=== PATIENT | male | born 1980 | race Caucasian/White ===

== ENCOUNTER → 2016-10-09 | Outpatient (CLI) | payer MEDICAID ==
--- NOTE | 2016-10-09 22:15 | CONS ---
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 The patient was diagnosed having obstructive sleep apnea approximately 6 years ago and diagnosis was established in [place], [place]. Back then, he was going for nursing school and was diagnosed having FAUSTO and given CPAP machine. His original sleep study is not available. His CPAP machine has been acting up and he is interested in having a re-evaluation, especially as he has gained around 25 pounds over the past 6 years. He is utilizing a full-face comfort gel blue mask. He has snoring while on treatment for now. He has been also noted to stop breathing. He goes to bed around 10:00 p.m., wakes up at 4:00 a.m. in the morning. He is tired and sleepy during the day and he falls asleep on multiple occasions, especially when he is inactive. He wants to be re-evaluated for suboptimal sleep apnea treatment. His [place] score is at 13 for now. Otherwise, no other medical problems other than obstructive sleep apnea and hypertension. PAST MEDICAL HISTORY: FAUSTO and hypertension. PAST SURGICAL HISTORY: None. Drug allergies are none. Outpatient medication includes lisinopril 10. SOCIAL HISTORY: Nonsmoker. No history of alcohol. No history of IV drugs. FAMILY HISTORY: Negative for sleep apnea. REVIEW OF SYSTEMS: Twelve-point review of systems was done and the positive findings were all mentioned above in the history of present illness. BP is 141/78, pulse 84, respirations 16, temperature 98.6. Saturation 96% on room air. Neck size is 17. Weight is 306. BMI is 42.6, height is 5 feet 11 inches. GENERAL APPEARANCE: Obese, calm, comfortable. HEENT: Short neck, Mallampati class IV. There is no goiter, neck masses. LUNGS: Clear to auscultation. HEART: Sounds are regular rate and rhythm. Normal S1, S2. No S3. No S4. No murmurs. ABDOMEN: Soft, nontender. No organomegaly. EXTREMITIES: No edema. No cyanosis or clubbing. IMPRESSION: 1. Obstructive sleep apnea. The patient is coming in for re-evaluation. He is symptomatic. Rule out suboptimal continuous positive airway pressure therapy due to suboptimal pressures. Rule out malfunctioning of his original continuous positive airway pressure machine that was given to him 6 years ago. 2. Obesity, body mass index of 42.6. 3. Hypersomnia. [place] score of 13. 4. Hypertension. PLAN: 1. Set up this patient for a split-night study. During the study, the diagnosis of the sleep apnea will be re-confirmed and the patient will be titrated and following that, the patient will be given a new CPAP machine and update his pressure and a mask interface. 2. Encourage weight loss. 3. Improve sleep hygiene measures. 4. Will follow.
== END | disposition home or self-care (01) ==
LOC: SLEEP 16:19
PROVIDERS: ATTEND Internal Medicine Critical Care Medicine
DX: G47.33 Obstructive sleep apnea (adult) (pediatric) (principal); E66.9 Obesity, unspecified; G47.10 Hypersomnia, unspecified; I10 Essential (primary) hypertension; Z68.41 Body mass index [BMI] 40.0-44.9, adult; Z99.89 Dependence on other enabling machines and devices; Z79.899 Other long term (current) drug therapy
CPT/HCPCS: 99211

== ENCOUNTER → 2017-02-12 | Outpatient (CLI) | payer MEDICAID ==
--- NOTE | 2017-02-12 16:55 | P.PN ---
Progress Note - Text 36-year-old male patient coming to see me in follow-up in regards to his obstructive sleep apnea. He is coming in for a compliancy check . The patient underwent a split-night study and he was confirmed to have severe obstructive sleep apnea with an apnea popping index of 86 and following that he was given a CPAP titration during which was titrated to CPAP pressure of 10 cm of water. He is looking great. He is happy with this clinical response. He denies having any specific complaints. Is benefiting from the treatment. He is wearing his CPAP every night. His compliance data shows that his been using his CPAP every night and it's being used 100% of the time. His [place] CPAP use is on 6.7 hours per night. His AHI is down to 2.2. He is leak fact that is 15 L/m. He has no specific complaints. He is using a mccoy fx nasal mask. He is wondering if the pressure can be increased by another 1 cm knowing that at times his tells him that he is snoring. BP is 139/76, pulse is 88, respirations 16, weight is 304 and temperature is 98.9. Saturations 97% on room air. Gen. appearance,, comfortable no acute distress. Head is atraumatic normocephalic. Neck is supple and there is no jugular venous distention and there is no goiter or neck masses. Lungs are clear to auscultation. Heart sounds are regular rhythm normal S1-S2. Abdomen is soft and nontender. No organomegaly. Extremities there is no cyanosis no edema no clubbing. Impression #1 severe symptomatic obstructive sleep apnea with an AHI of 86.9. The patient underwent a successful split night study. The patient currently is on CPAP pressure of 10 cm of water. History of any successful. He would like to increase his pressure further knowing that his been having some limited amount of snoring. #2 morbid obesity with a BMI of 42. #3 hypersomnia improving. #4' hypertension Plan increase his CPAP by 1 cm to bring it up to 11 cm of water. Treatment is successful. Compliance data was checked. The patient is benefiting from the treatment. Encourage weight loss. See me back in a year or 2, earlier if needed.
== END | disposition home or self-care (01) ==
LOC: SLEEP 16:30
PROVIDERS: ATTEND Internal Medicine Critical Care Medicine
DX: G47.33 Obstructive sleep apnea (adult) (pediatric) (principal); E66.01 Morbid (severe) obesity due to excess calories; Z68.41 Body mass index [BMI] 40.0-44.9, adult; G47.10 Hypersomnia, unspecified; I10 Essential (primary) hypertension

== ENCOUNTER 2019-01-19 04:22 | Emergency (ER) | payer MEDICAID ==
[2019-01-19] MEDS ORDERED: SODIUM CHLORIDE 0.9% 1,000 ML IV STA (04:34)
[2019-01-19 05:15] LABS: Basophils # (A) 0.1 k/uL (0-0.2); Basophils % (A) 1 %; Eosinophils # (A) 0.4 k/uL (0-0.7); Eosinophils % (A) 5 %; HCT 42.6 % (39.0-53.0); HGB 14.3 gm/dL (13.0-17.5); Lymphocytes # (A) 2.6 k/uL (1.0-4.8); Lymphocytes % (A) 31 %; MCH 28.8 pg (25.0-35.0); MCHC 33.6 g/dL (31.0-37.0); MCV 85.8 fL (80.0-100.0); Mean Platelet Volume 6.7; Monocytes # (A) 0.4 k/uL (0-1.0); Monocytes % (A) 5 %; Neutrophils # (A) 4.7 k/uL (1.3-7.7); Neutrophils % (A) 56 %; Platelet Count 249 k/uL (150-450); RBC 4.96 m/uL (4.30-5.90); RDW 13.1 % (11.5-15.5); WBC 8.3 k/uL (3.8-10.6)
[2019-01-19 05:19] VITALS: RESP 18
--- NOTE | 2019-01-19 05:22 | ED ---
General Adult HPI - General Chief complaint: Chest Pain Stated complaint: Chest Pain Time Seen by Provider: 01/19/19 04:34 Source: family Mode of arrival: wheelchair Limitations: no limitations - History of Present Illness Initial comments: Is a previously healthy 38-year-old gentleman with a history of hypertension who presents to the emergency department today for evaluation of right-sided chest pain. Patient reports that he is usually pretty physically active. 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 Patient reports he's had a couple days off and has been doing some work around the house including painting. He reports that yesterday he noticed some pain in the right side of his chest, pains described as the discomfort seems to be worse with coughing or sneezing. Patient states that initially he thought maybe he just had a rib out of place however throughout the night on Saturday night the pain kept him awake and he became concerned that he may have a pulmonary embolism. Patient did not feel any palpitations shortness of breath lightheadedness or diaphoresis. He has no history of DVT, PE or family history of clotting disorder. He's not had any long travel or immobilization. He has not noticed any swelling in one leg or the other. Patient has no cardiac history. No family history of early cardiac disease. Patient states the pain is nagging but insignificant. He took Motrin with minimal improvement but does not want any medications for the pain today. - Related Data Home Medications Medication Instructions Recorded Confirmed Lisinopril [Zestril] 10 mg PO DAILY 01/12/15 01/12/15 Allergies Allergy/AdvReac Type Severity Reaction Status Date / Time No Known Allergies Allergy Verified 01/12/15 08:48 Review of Systems ROS Statement: Those systems with pertinent positive or pertinent negative responses have been documented in the HPI. ROS Other: All systems not noted in ROS Statement are negative. Past Medical History Past Medical History: Hyperlipidemia, Hypertension History of Any Multi-Drug Resistant Organisms: None Reported Past Surgical History: No Surgical Hx Reported Additional Past Surgical History / Comment(s): carpal tunnel right hand Past Psychological History: No Psychological Hx Reported Smoking Status: Never smoker Past Alcohol Use History: None Reported Past Drug Use History: None Reported General Exam - General Exam Comments Initial Comments: Physical Exam GENERAL: Patient is well-developed and well-nourished. Patient is nontoxic and well-hydr ated and is in no distress. HENT: Normocephalic, Atraumatic. EYES: PERRL, EOMI PULMONARY: Unlabored respirations. No audible rales rhonchi or wheezing was noted. CARDIOVASCULAR: There is a regular rate and rhythm without any murmurs gallops or rubs. No lower extremity edema ABDOMEN: Soft and nontender with normal bowel sounds. Obese SKIN: Skin is clear with no lesions or rashes and otherwise unremarkable. : Deferred NEUROLOGIC: Patient is alert and oriented x3. Moving all extremities spontaneously MUSCULOSKELETAL: Normal extremities with adequate strength and full range of motion. No lower extremity swelling or edema. No calf tenderness. PSYCHIATRIC: Normal psychiatric evaluation Limitations: no limitations Course Vital Signs 01/19/19 01/19/19 01/19/19 04:23 05:18 06:06 Temperature 98.3 F 98.5 F Pulse Rate 90 75 77 Respiratory 20 18 18 Rate Blood Pressure 143/95 108/67 124/71 O2 Sat by Pulse 99 96 96 Oximetry EKG Findings - EKG Comments: EKG Findings:: EKG was obtained due to complaint of chest pain. EKG obtained at 4:39 AM, rate is 84 rhythm is sinus there is normal axis, there are normal intervals, ME 152, QRS 94, QTC is 4:[address] elevations or depressions there is no evidence of acute ischemia or infarction. 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 He has no history of and no risk factors for pulmonary embolism. He is not tachypneic, tachycardic or hypoxic. EKG is nonischemic. Labs and chest x-ray will be ordered Assessment is unremarkable Labs were within normal limits, d-dimer and troponin are not elevated At this time I do feel the patient's chest pain is likely musculoskeletal in nature, patient declined any analgesics for the chest pain. Patient will be discharged home with outpatient follow-up. - Lab Data Result diagrams: 01/19/19 04:45 01/19/19 04:45 Lab Results 01/19/19 01/19/19 01/19/19 Range/Units 04:45 04:45 04:45 WBC 8.3 (3.8-10.6) k/uL RBC 4.96 (4.30-5.90) m/uL Hgb 14.3 (13.0-17.5) gm/dL Hct 42.6 (39.0-53.0) % MCV 85.8 (80.0-100.0) fL MCH 28.8 (25.0-35.0) pg MCHC 33.6 (31.0-37.0) g/dL RDW 13.1 (11.5-15.5) % Plt Count 249 (150-450) k/uL Neutrophils % 56 % Lymphocytes % 31 % Monocytes % 5 % Eosinophils % 5 % Basophils % 1 % Neutrophils # 4.7 (1.3-7.7) k/uL Lymphocytes # 2.6 (1.0-4.8) k/uL Monocytes # 0.4 (0-1.0) k/uL Eosinophils # 0.4 (0-0.7) k/uL Basophils # 0.1 (0-0.2) k/uL PT 10.3 (9.0-12.0) sec INR 1.0 (<1.2) APTT 26.0 (22.0-30.0) sec D-Dimer 0.20 (<0.60) mg/L FEU Sodium 139 (137-145) mmol/L Potassium 4.2 (3.5-5.1) mmol/L Chloride 101 (98-107) mmol/L Carbon Dioxide 28 (22-30) mmol/L Anion Gap 10 mmol/L BUN 28 H (9-20) mg/dL Creatinine 1.02 (0.66-1.25) mg/dL Est GFR (CKD-EPI)AfAm >90 (>60 ml/min/1.73 sqM) Est GFR (CKD-EPI)NonAf >90 (>60 ml/min/1.73 sqM) Glucose 105 H (74-99) mg/dL Calcium 9.7 (8.4-10.2) mg/dL Magnesium 1.8 (1.6-2.3) mg/dL Total Bilirubin 0.4 (0.2-1.3) mg/dL AST 28 (17-59) U/L ALT 34 (21-72) U/L Alkaline Phosphatase 74 (38-126) U/L Troponin I (0.000-0.034) ng/mL Total Protein 7.8 (6.3-8.2) g/dL Albumin 4.8 (3.5-5.0) g/dL 01/19/19 Range/Units 04:45 WBC (3.8-10.6) k/uL RBC (4.30-5.90) m/uL Hgb (13.0-17.5) gm/dL Hct (39.0-53.0) % MCV (80.0-100.0) fL MCH (25.0-35.0) pg MCHC (31.0-37.0) g/dL RDW (11.5-15.5) % Plt Count (150-450) k/uL Neutrophils % % Lymphocytes % % Monocytes % % Eosinophils % % Basophils % % Neutrophils # (1.3-7.7) k/uL Lymphocytes # (1.0-4.8) k/uL Monocytes # (0-1.0) k/uL Eosinophils # (0-0.7) k/uL Basophils # (0-0.2) k/uL PT (9.0-12.0) sec INR (<1.2) APTT (22.0-30.0) sec D-Dimer (<0.60) mg/L FEU Sodium (137-145) mmol/L Potassium (3.5-5.1) mmol/L Chloride (98-107) mmol/L Carbon Dioxide (22-30) mmol/L Anion Gap mmol/L BUN (9-20) mg/dL Creatinine (0.66-1.25) mg/dL Est GFR (CKD-EPI)AfAm (>60 ml/min/1.73 sqM) Est GFR (CKD-EPI)NonAf (>60 ml/min/1.73 sqM) Glucose (74-99) mg/dL Calcium (8.4-10.2) mg/dL Magnesium (1.6-2.3) mg/dL Total Bilirubin (0.2-1.3) mg/dL AST (17-59) U/L ALT (21-72) U/L Alkaline Phosphatase (38-126) U/L Troponin I <0.012 (0.000-0.034) ng/mL Total Protein (6.3-8.2) g/dL Albumin (3.5-5.0) g/dL Disposition Clinical Impression: Atypical chest pain Disposition: HOME SELF-CARE Condition: Stable Instructions (If sedation given, give patient instructions): Costochondritis (ED) Is patient prescribed a controlled substance at d/c from ED?: No Referrals: Jamari Barrios DO [Primary Care Provider] - 1-2 days
[2019-01-19 05:25] LABS: ALT 34 U/L (21-72); AST 28 U/L (17-59); African American GFR (CKD) >90 (>60 ml/min/1.73 sqM); Albumin 4.8 g/dL (3.5-5.0); Alkaline Phosphatase 74 U/L (38-126); Anion Gap 10 mmol/L; Blood Urea Nitrogen 28 mg/dL (9-20); Calcium 9.7 mg/dL (8.4-10.2); Carbon Dioxide 28 mmol/L (22-30); Chloride 101 mmol/L (98-107); Glucose 105 mg/dL (74-99); Magnesium 1.8 mg/dL (1.6-2.3); Potassium 4.2 mmol/L (3.5-5.1); Sodium 139 mmol/L (137-145); Total Bilirubin 0.4 mg/dL (0.2-1.3); Total Protein 7.8 g/dL (6.3-8.2)
[2019-01-19 05:29] LABS: D-Dimer 0.2 mg/L FEU (<0.60); Prothrombin Time 10.3 sec (9.0-12.0)
--- NOTE | 2019-01-19 05:32 | XR ---
INDICATION: Chest pain COMPARISON: None FINDINGS: Frontal and lateral views of the chest are submitted for interpretation. Cardiomediastinal silhouette and pulmonary vascularity are normal. Right hemidiaphragm is mildly elevated. The lungs are clear. There is no pleural effusion or pneumothorax. Regional skeleton is intact. IMPRESSION: No acute cardiopulmonary disease.
[2019-01-19 06:07] VITALS: BP 124/71; PULSE 77; TEMP 98.5
== END 2019-01-19 06:07 | disposition home or self-care (01) ==
LOC: EC 04:22
DX: R07.89 Other chest pain (principal); I10 Essential (primary) hypertension; Z79.899 Other long term (current) drug therapy
CPT/HCPCS: 36415; 71046; 80053; 83735; 84484; 85025; 85379; 85610; 85730; 93005; 96360; 99285

== ENCOUNTER → 2020-05-23 | Outpatient (CLI) | payer MEDICAID ==
[2020-05-23 14:30] VITALS: BP 143/85; PULSE 85; TEMP 98.2; BMI 42.8
--- NOTE | 2020-05-23 14:58 | P.HPBAR ---
Bariatric H&P - History & Physicial H&P Date: 05/23/20 History & Physicial: Visit/CC: initial visit Patient initial contact: Initial weight: Initial weight in pounds: Height: 6 ft 1 in Initial BMI: Last weight: Current weight: 147.281 kg Current weight in pounds: 324.70 Current BMI: 42.8 [place] body weight (based on NIH guidelines): 83.461 kg Excess body weight loss: The patient is a 39 year-old M who presents for Bariatric Assessment. Patient presents today for presurgical consultation. He is a lifetime problems obesity. His BMI is 43. Past Medical History Past Medical History: Hyperlipidemia, Hypertension, Sleep Apnea/CPAP/BIPAP History of Any Multi-Drug Resistant Organisms: None Reported Past Surgical History: Orthopedic Surgery Additional Past Surgical History / Comment(s): carpal tunnel right hand Past Anesthesia/Blood Transfusion Reactions: No Reported Reaction Past Psychological History: No Psychological Hx Reported Smoking Status: Never smoker Past Alcohol Use History: None Reported Past Drug Use History: None Reported Surgical - Exam Vital Signs Temp Pulse BP 98.2 F 85 143/85 05/23/20 14:25 05/23/20 14:25 05/23/20 14:25 - General well developed, well nourished, no distress - Eyes PERRL - ENT normal pinna - Neck no masses - Respiratory normal expansion - Cardiovascular Rhythm: regular - Abdomen Abdomen: soft, non tender Bariatric Assessment & Plan Plan: Morbid obesity, BMI 43. Patient will be scheduled for EGD. He'll follow-up after this is been performed. Patient has an excellent understanding significant gastric appeared minimally the risks and benefits of procedure including conversion to the open procedure and injury to the stomach liver spleen and issues gastric staple line such as bleeding scarring or perforation Bariatric Checklist Checklist: Plan: Checklist: EGD: 1. Hiatal hernia: 2. H. Pylori: HgbA1c: Vitamin D: Smoking: Never smoker Primary care physician referral: Dr. Barrios Psychiatry clearance: Cardiology clearance: Sleep study: Diet journal: VTE risk score: VTE risk level: Rehab needs at discharge:
[2020-05-23 15:56] LABS: HCT 43.5 % (39.0-53.0); HGB 14.3 gm/dL (13.0-17.5); MCH 29.6 pg (25.0-35.0); MCHC 32.8 g/dL (31.0-37.0); MCV 90.1 fL (80.0-100.0); Mean Platelet Volume 7.3; Platelet Count 262 k/uL (150-450); RBC 4.83 m/uL (4.30-5.90); RDW 12.7 % (11.5-15.5); WBC 8.1 k/uL (3.8-10.6)
[2020-05-24 00:13] LABS: African American GFR (CKD) 110.2 (60.0-200.0); Albumin 4.8 g/dL (3.80-4.90); Albumin/Globulin Ratio 2.18 (1.60-3.17); Anion Gap 10.5 mmol/L (4.00-12.00); Calcium 9.4 mg/dL (8.7-10.3); Carbon Dioxide 28.5 mmol/L (21.6-31.8); Globulin 2.2 g/dL (1.6-3.3); Non-African American GFR(CKD) 95.1 (60.0-200.0); Potassium 4.3 mmol/L (3.5-5.5); Total Bilirubin 0.3 mg/dL (0.3-1.2)
[2020-05-24 03:31] LABS: Hemoglobin A1C 5.5 % (4.0-6.0)
== END | disposition home or self-care (01) ==
LOC: BARWHC3 13:50 → MERGE 14:00
PROVIDERS: ATTEND Surgery
DX: E88.81 Metabolic syndrome and other insulin resistance (principal); E66.01 Morbid (severe) obesity due to excess calories; E55.9 Vitamin D deficiency, unspecified; Z68.41 Body mass index [BMI] 40.0-44.9, adult
CPT/HCPCS: 80053; 82306; 82607; 82746; 83036; 84425; 85027; 93005; 99211

== ENCOUNTER 2020-06-14 11:54 | Emergency (ER) | payer MEDICAID ==
[2020-06-14 11:59] VITALS: RESP 18; TEMP 98.2
--- NOTE | 2020-06-14 12:36 | ED ---
Lower Extremity Injury HPI - General Chief Complaint: Extremity Injury, Lower Stated Complaint: R Knee Pain Time Seen by Provider: 06/14/20 12:03 Source: patient, RN notes reviewed Mode of arrival: wheelchair Limitations: physical limitation - History of Present Illness Initial Comments: This is a 39-year-old male presents emergency Department with chief complaint of right knee pain. He states he had some injury few days ago and he states he twisted he felt that he popped it back and felt better. Patient states now cyst sore states that hurts to bear weight on the medial aspect. Patient denies any swelling, redness or any discoloration. Patient states she's had no prior knee problems. Denies any clicking, popping sensation no pain above or below the right knee - Related Data Home Medications Medication Instructions Recorded Confirmed lisinopriL [Zestril] 10 mg PO DAILY 01/12/15 06/14/20 Escitalopram [Lexapro] 10 mg PO DAILY 05/23/20 06/14/20 Ascorbic Acid [Vitamin C] 1,000 mg PO DAILY 06/14/20 06/14/20 Aspirin EC [Ecotrin Low Dose] 81 mg PO DAILY 06/14/20 06/14/20 Cholecalciferol [Vitamin D3 (25 1,000 unit PO DAILY 06/14/20 06/14/20 Mcg = 1000 Iu)] Cyanocobalamin (Vitamin B-12) 1,000 mcg PO DAILY 06/14/20 06/14/20 [Vitamin B-12] Zinc 50 mg PO DAILY 06/14/20 06/14/20 Previous Rx's Medication Instructions Recorded Ibuprofen [Motrin] 600 mg PO Q8HR PRN #20 tab 06/14/20 Allergies Allergy/AdvReac Type Severity Reaction Status Date / Time No Known Allergies Allergy Verified 06/14/20 12:40 Review of Systems ROS Statement: Those systems with pertinent positive or pertinent negative responses have been documented in the HPI. ROS Other: All systems not noted in ROS Statement are negative. Past Medical History Past Medical History: Hyperlipidemia, Hypertension, Sleep Apnea/CPAP/BIPAP History of Any Multi-Drug Resistant Organisms: None Reported Past Surgical History: Orthopedic Surgery Additional Past Surgical History / Comment(s): carpal tunnel right hand Past Anesthesia/Blood Transfusion Reactions: No Reported Reaction Past Psychological History: No Psychological Hx Reported Smoking Status: Never smoker Past Alcohol Use History: None Reported Past Drug Use History: None Reported General Exam Limitations: physical limitation General appearance: alert, in no apparent distress Head exam: Present: atraumatic, normocephalic, normal inspection Eye exam: Present: normal appearance, PERRL, EOMI. Absent: scleral icterus, conjunctival injection, periorbital swelling ENT exam: Present: normal exam, normal oropharynx, mucous membranes moist Neck exam: Present: normal inspection, full ROM. Absent: tenderness, meningismus, lymphadenopathy Respiratory exam: Present: normal lung sounds bilaterally. Absent: respiratory distress, wheezes, rales, rhonchi, stridor Cardiovascular Exam: Present: regular rate, normal rhythm, normal heart sounds. Absent: systolic murmur, diastolic murmur, rubs, gallop, clicks Extremities exam: Present: other (Right knee patient has full range of motion neurovascular intact there is no laxity noted no pain with valgus or varus, pedal pulses equal bilaterally joint above and below within normal limits) Course Vital Signs 06/14/20 11:56 Temperature 98.2 F Pulse Rate 84 Respiratory 18 Rate Blood Pressure 155/97 O2 Sat by Pulse 97 Oximetry Medical Decision Making - Medical Decision Making 31-year-old male presented for knee pain. X-rays unremarkable. Patient may have underlying internal injury including meniscus or ligamentous injury. Patient will provided crutches will follow-up with orthopedics and return parameters were discussed. Disposition Clinical Impression: Right knee sprain Disposition: HOME SELF-CARE Condition: Stable Instructions (If sedation given, give patient instructions): Knee Sprain (ED) Additional Instructions: Please return to the Emergency Department if symptoms worsen or any other concerns. Prescriptions: Ibuprofen [Motrin] 600 mg PO Q8HR PRN #20 tab PRN Reason: Pain Is patient prescribed a controlled substance at d/c from ED?: No Referrals: Jamari Barrios DO [Primary Care Provider] - 1-2 days Javid Leyva MD [STAFF PHYSICIAN] - 1-2 days Time of Disposition: 13:02
--- NOTE | 2020-06-14 12:39 | XR ---
EXAMINATION TYPE: XR knee complete RT DATE OF EXAM: 06/14/2020 CLINICAL HISTORY: pain TECHNIQUE: Three views of the right knee are obtained. COMPARISON: None. FINDINGS: There is no acute fracture/dislocation. The tri-compartment joint spaces appear within no rmal limits. The overlying soft tissue appears unremarkable. IMPRESSION: There is no acute fracture or dislocation.ICD 10 NO FRACTURE, INITIAL EVALUATION
[2020-06-14 13:17] VITALS: BP 137/86; PULSE 81
== END 2020-06-14 13:17 | disposition home or self-care (01) ==
LOC: EC 11:54
DX: S83.91XA Sprain of unspecified site of right knee, initial encounter (principal); I10 Essential (primary) hypertension; G47.30 Sleep apnea, unspecified; Z79.899 Other long term (current) drug therapy; Z79.82 Long term (current) use of aspirin; Z99.89 Dependence on other enabling machines and devices; X50.1XXA Overexertion from prolonged static or awkward postures, initial encounter
CPT/HCPCS: 99283

== ENCOUNTER → 2020-06-30 | Day surgery (SDC) | payer MEDICAID ==
[2020-06-28 11:30] VITALS: BMI 43.4
[~2020-06-30] MED LIST: LIDOCAINE 1% (10MG/ML) FOR IV START INTRADERMA PRN; LIDOCAINE 1% INJ 10MG/ML (20 ML MDV) ONE; PROPOFOL 10 MG/ML 20 ML VIAL IV ONE
[2020-06-30 09:21] VITALS: TEMP 97.2
[2020-06-30] MEDS: LACTATED RINGERS 1,000 ML IV SCH ×2 (09:31→10:10)
--- NOTE | 2020-06-30 10:20 | P.GSHP ---
History of Present Illness H&P Date: 06/30/20 Chief Complaint: Morbid obesity, GERD This a 39-year-old male has safer EGD. And issues with GERD. He currently undergoing workup for sleeve gastrectomy. Past Medical History Past Medical History: Hyperlipidemia, Hypertension, Musculoskeletal Disorder, Sleep Apnea/CPAP/BIPAP Additional Past Medical History / Comment(s): recently tore meniscus/acl right knee, currently using crutches, uses CPAP, had covid about one month ago & resolved History of Any Multi-Drug Resistant Organisms: None Reported Past Surgical History: Orthopedic Surgery Additional Past Surgical History / Comment(s): carpal tunnel right hand Past Anesthesia/Blood Transfusion Reactions: No Reported Reaction Smoking Status: Never smoker Medications and Allergies Home Medications Medication Instructions Recorded Confirmed Type lisinopriL [Zestril] 10 mg PO DAILY 01/12/15 06/30/20 History Escitalopram [Lexapro] 10 mg PO DAILY 05/23/20 06/30/20 History Ascorbic Acid [Vitamin C] 1,000 mg PO DAILY 06/14/20 06/30/20 History Aspirin EC [Ecotrin Low Dose] 81 mg PO DAILY 06/14/20 06/30/20 History Cholecalciferol [Vitamin D3 (25 1,000 unit PO DAILY 06/14/20 06/30/20 History Mcg = 1000 Iu)] Cyanocobalamin (Vitamin B-12) 1,000 mcg PO DAILY 06/14/20 06/30/20 History [Vitamin B-12] Ibuprofen [Motrin] 600 mg PO Q8HR PRN #20 tab 06/14/20 06/30/20 Rx Zinc 50 mg PO DAILY 06/14/20 06/30/20 History Allergies Allergy/AdvReac Type Severity Reaction Status Date / Time No Known Allergies Allergy Verified 06/30/20 09:24 Surgical - Exam Vital Signs Temp Pulse Resp BP Pulse Ox 97.2 F L 76 18 130/79 95 06/30/20 09:19 06/30/20 09:19 06/30/20 09:19 06/30/20 09:19 06/30/20 09:19 - General well developed, well nourished, no distress - Eyes PERRL - ENT normal pinna - Neck no masses - Respiratory normal expansion - Cardiovascular Rhythm: regular - Abdomen Abdomen: soft, non tender Assessment and Plan Assessment: Obesity, BMI 45, GERD. We'll perform EGD.
--- NOTE | 2020-06-30 10:28 | P.OP ---
Date of Procedure: 06/30/20 Preoperative Diagnosis: GERD Morbid obesity Postoperative Diagnosis: Antral gastritis Small sliding hiatal hernia Mild esophagitis Procedure(s) Performed: EGD Anesthesia: MAC Surgeon: Doc Hernandez Pathology: other (Antrum, esophagus) Condition: stable Disposition: PACU Description of Procedure: Patient's placed on the endoscopy table in the lateral position. He received IV sedation. The gastro-/oropharynx and passed in the esophagus into the stomach and then through the pylorus and the first and second portion of duodenum. This appeared normal. Scope was then brought back the antrum this appeared mildly inflamed. A biopsies performed. Scope was unretroflexed and remainder of the stomach appeared normal. The patient a small sliding hiatal hernia. The GE junction was at 47 is. The distal esophagus was minimal inflamed and a biopsies performed. The proximal esophagus appeared normal. Scope was withdrawn for patient.
[2020-06-30 10:37] VITALS: RESP 16
[2020-06-30 10:56] VITALS: BP 138/89; PULSE 70
== END ==
LOC: ORWHC2ENDO 08:50
PROVIDERS: ATTEND Surgery
DX: K29.70 Gastritis, unspecified, without bleeding (principal); K44.9 Diaphragmatic hernia without obstruction or gangrene; K21.00 Gastro-esophageal reflux disease with esophagitis, without bleeding; E78.5 Hyperlipidemia, unspecified; I10 Essential (primary) hypertension; G47.30 Sleep apnea, unspecified; E66.01 Morbid (severe) obesity due to excess calories; Z68.42 Body mass index [BMI] 45.0-49.9, adult; Z99.89 Dependence on other enabling machines and devices; S83.241D Other tear of medial meniscus, current injury, right knee, subsequent encounter; S83.511D Sprain of anterior cruciate ligament of right knee, subsequent encounter; Z86.19 Personal history of other infectious and parasitic diseases; Z98.890 Other specified postprocedural states; Z79.82 Long term (current) use of aspirin; Z79.1 Long term (current) use of non-steroidal anti-inflammatories (NSAID); Z79.899 Other long term (current) drug therapy
CPT/HCPCS: 88305; 43239; J2001; J2704

== ENCOUNTER → 2020-07-04 | Outpatient (CLI) | payer MEDICAID ==
[2020-07-04 12:54] VITALS: BP 135/80; PULSE 90; TEMP 98.1; BMI 44.0
--- NOTE | 2020-07-04 15:56 | P.HPBAR ---
Bariatric H&P - History & Physicial H&P Date: 07/04/20 History & Physicial: Visit/CC: egd follow up Patient initial contact: Initial weight: Initial weight in pounds: Height: 6 ft 1 in Initial BMI: Last weight: Current weight: 151.5 kg Current weight in pounds: 334.00 Current BMI: 44.0 [place] body weight (based on NIH guidelines): 83.461 kg Excess body weight loss: The patient is a 39 year-old M who presents for Bariatric Assessment. Patient presents today for sleeve gastrectomy presurgery consultation. He has just completed his EGD. He has had issues with knee arthritis using meniscal tear. BMI is 44 Past Medical History Past Medical History: Hyperlipidemia, Hypertension, Musculoskeletal Disorder, Sleep Apnea/CPAP/BIPAP History of Any Multi-Drug Resistant Organisms: None Reported Past Surgical History: Orthopedic Surgery Additional Past Surgical History / Comment(s): carpal tunnel right hand Past Anesthesia/Blood Transfusion Reactions: No Reported Reaction Past Psychological History: No Psychological Hx Reported Smoking Status: Never smoker Past Alcohol Use History: None Reported Past Drug Use History: None Reported Surgical - Exam Vital Signs Temp Pulse BP 98.1 F 90 135/80 07/04/20 12:52 07/04/20 12:52 07/04/20 12:52 - General well developed, well nourished, no distress - Eyes PERRL - ENT normal pinna - Neck no masses - Respiratory normal expansion - Cardiovascular Rhythm: regular - Abdomen Abdomen: soft, non tender Bariatric Assessment & Plan Plan: Morbid obesity, BMI 44. Patient is scheduled for sleeve gastrectomy once insurance authorization requirements have been met. Bariatric Checklist Checklist: Plan: Checklist: EGD: 1. Hiatal hernia: 2. H. Pylori: HgbA1c: Vitamin D: Smoking: Never smoker Primary care physician referral: Dr. Barrios Psychiatry clearance: Cardiology clearance: Sleep study: Diet journal: VTE risk score: VTE risk level: Rehab needs at discharge:
== END | disposition home or self-care (01) ==
LOC: BARWHC3 12:25
PROVIDERS: ATTEND Surgery
DX: E66.01 Morbid (severe) obesity due to excess calories (principal); Z68.41 Body mass index [BMI] 40.0-44.9, adult
CPT/HCPCS: 99211

== ENCOUNTER → 2020-08-15 | Outpatient (CLI) | payer MEDICAID ==
[2020-08-15 09:16] VITALS: BMI 43.9
[2020-08-15 13:06] VITALS: BP 118/73; PULSE 81; RESP 18; TEMP 98.1
--- NOTE | 2020-08-15 14:08 | P.HPBAR ---
Bariatric H&P - History & Physicial H&P Date: 08/15/20 History & Physicial: Visit/CC: presurgical visit Patient initial contact: Initial weight: Initial weight in pounds: Height: 6 ft 1 in Initial BMI: Last weight: Current weight: 151.001 kg Current weight in pounds: 332.90 Current BMI: 43.9 [place] body weight (based on NIH guidelines): 83.461 kg Excess body weight loss: The patient is a 39 year-old M who presents for Bariatric Assessment. Patient presents today for presurgical consultation. He is almost finished with entire authorization process. He is morbidly obese with BMI 44. He has an excellent understanding of sleeve gastrectomy. Past Medical History Past Medical History: Hyperlipidemia, Hypertension, Musculoskeletal Disorder, Sleep Apnea/CPAP/BIPAP History of Any Multi-Drug Resistant Organisms: None Reported Past Surgical History: Orthopedic Surgery Additional Past Surgical History / Comment(s): carpal tunnel right hand; right knee surgery - ACL/meniscus 08/01/20; Past Anesthesia/Blood Transfusion Reactions: No Reported Reaction Past Psychological History: No Psychological Hx Reported Smoking Status: Never smoker Past Alcohol Use History: None Reported Past Drug Use History: None Reported Surgical - Exam Vital Signs Temp Pulse Resp BP 98.1 F 81 18 118/73 08/15/20 13:03 08/15/20 13:03 08/15/20 13:03 08/15/20 13:03 - General well developed, well nourished, no distress - Eyes PERRL - ENT normal pinna - Neck no masses - Respiratory normal expansion - Cardiovascular Rhythm: regular - Abdomen Abdomen: soft, non tender Bariatric Assessment & Plan Plan: Morbid obesity, BMI 44. Patient be scheduled for sleeve gastrectomy once as authorization is complete. Bariatric Checklist Checklist: Plan: Checklist: EGD: 1. Hiatal hernia: 2. H. Pylori: HgbA1c: Vitamin D: Smoking: Never smoker Primary care physician referral: Dr. Barrios Psychiatry clearance: Cardiology clearance: Sleep study: Diet journal: VTE risk score: VTE risk level: Rehab needs at discharge:
== END | disposition home or self-care (01) ==
LOC: BARWHC3 08:25
PROVIDERS: ATTEND Surgery
DX: E66.01 Morbid (severe) obesity due to excess calories (principal); Z68.41 Body mass index [BMI] 40.0-44.9, adult; Z71.3 Dietary counseling and surveillance
CPT/HCPCS: 97804; 99211

== ENCOUNTER 2021-03-29 17:29 | Emergency (ER) | payer MEDICAID ==
[2021-03-29 17:46] VITALS: TEMP 97.7
[2021-03-29] MEDS ORDERED: SODIUM CHLORIDE 0.9% 1,000 ML IV STA (18:10)
[2021-03-29] MEDS ORDERED: DIPH,PERTUS(ACELL)TETVAC-LF 0.5 ML VIAL IM ONE (18:10)
[2021-03-29] MEDS ORDERED: HYDROmorphone 1 MG/ML 1 ML SYRINGE IVP STA (18:10)
[2021-03-29] MEDS ORDERED: ACET/COD 300 MG/30 MG STARTER PACK 6 TAB BTL PO STA (19:14)
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
[2021-03-29 19:30] VITALS: BP 145/76; PULSE 95; RESP 20
== END 2021-03-29 19:29 | disposition home or self-care (01) ==
LOC: EC 17:29
DX: T22.212A Burn of second degree of left forearm, initial encounter (principal); T25.112A Burn of first degree of left ankle, initial encounter; T31.0 Burns involving less than 10% of body surface; I10 Essential (primary) hypertension; Z79.899 Other long term (current) drug therapy; Z23 Encounter for immunization; X08.8XXA Exposure to other specified smoke, fire and flames, initial encounter; Y93.89 Activity, other specified; Y92.89 Other specified places as the place of occurrence of the external cause
CPT/HCPCS: 90715; 99283; 96374; 96361; 90471; 16020; J1170

== ENCOUNTER → 2022-06-04 | Outpatient (CLI) | payer MEDICAID ==
[2022-06-04 14:53] VITALS: BP 132/77; PULSE 80; RESP 12; TEMP 98.8; BMI 42.2
--- NOTE | 2022-06-04 15:04 | P.HPBAR ---
Bariatric H&P - History & Physicial H&P Date: 06/04/22 History & Physicial: Visit/CC: Patient initial contact: Initial weight: Initial weight in pounds: Height: 6 ft 0.5 in Initial BMI: Last weight: Current weight: 143.088 kg Current weight in pounds: 315.46 Current BMI: 42.2 [place] body weight (based on NIH guidelines): 82.1 kg Excess body weight loss: The patient is a 41 year-old M who presents for Bariatric Assessment. Patient presents today for presurgical consultation. He is morbidly obese. BMI is 42. His weight is 315 pounds. Patient has undergone previous preoperative consultation for sleeve gastrectomy. Patient's surgery was canceled due to the knee meniscus injury. Past Medical History Past Medical History: Hyperlipidemia, Hypertension, Sleep Apnea/CPAP/BIPAP History of Any Multi-Drug Resistant Organisms: None Reported Past Surgical History: Orthopedic Surgery Additional Past Surgical History / Comment(s): carpal tunnel right hand Past Anesthesia/Blood Transfusion Reactions: No Reported Reaction Past Psychological History: No Psychological Hx Reported Smoking Status: Never smoker Past Alcohol Use History: None Reported Past Drug Use History: None Reported Surgical - Exam Vital Signs Temp Pulse Resp BP 98.8 F 80 12 132/77 06/04/22 14:48 06/04/22 14:48 06/04/22 14:48 06/04/22 14:48 - General well developed, well nourished, no distress - Eyes PERRL - ENT normal pinna - Abdomen Abdomen: soft, non tender Bariatric Assessment & Plan Plan: Morbid obesity. Patient will be scheduled for EGD. He'll follow-up after this is performed. Bariatric Checklist Checklist: Plan: Checklist: EGD: 1. Hiatal hernia: 2. H. Pylori: HgbA1c: Vitamin D: Smoking: Never smoker Primary care physician referral: Dr. Barrios Psychiatry clearance: Cardiology clearance: Sleep study: Diet journal: VTE risk score: VTE risk level: Rehab needs at discharge:
== END ==
LOC: BARWHC3 14:41
PROVIDERS: ATTEND Surgery
DX: E66.01 Morbid (severe) obesity due to excess calories (principal); Z98.84 Bariatric surgery status; Z68.41 Body mass index [BMI] 40.0-44.9, adult
CPT/HCPCS: 99211

== ENCOUNTER 2022-08-02 08:19 | Day surgery (SDC) | payer MEDICAID ==
[2022-07-31 08:55] VITALS: BMI 41.9
[2022-08-02] MEDS ORDERED: LIDOCAINE 1% (10MG/ML) FOR IV START INTRADERMA PRN (08:28)
[2022-08-02] MEDS ORDERED: LACTATED RINGERS 1,000 ML IV SCH (08:28)
[2022-08-02] MEDS ORDERED: ONDANSETRON 4 MG/2 ML VIAL IVP PRN (08:28)
[2022-08-02 08:37] VITALS: TEMP 97.2
[2022-08-02] MEDS ORDERED: LACTATED RINGERS 1,000 ML IV ONE (08:37)
[2022-08-02] MEDS ORDERED: PROPOFOL 10 MG/ML 20 ML VIAL IV ONE (09:39)
[2022-08-02] MEDS ORDERED: LIDOCAINE 2% INJ 20 MG/ML (2 ML VIAL) ONE (09:39)
--- NOTE | 2022-08-02 09:41 | P.GSHP ---
History of Present Illness H&P Date: 08/02/22 Chief Complaint: GERD, morbid obesity. This a 41-year-old male undergoing EGD today. Patient's undergoing workup for sleeve gastric. He's had some mild symptoms of GERD. Past Medical History Past Medical History: Hyperlipidemia, Hypertension, Sleep Apnea/CPAP/BIPAP Additional Past Medical History / Comment(s): CPAP use. History of Any Multi-Drug Resistant Organisms: None Reported Past Surgical History: Orthopedic Surgery Additional Past Surgical History / Comment(s): Carpal tunnel right hand, right knee surgery. Past Anesthesia/Blood Transfusion Reactions: No Reported Reaction Past Psychological History: No Psychological Hx Reported Smoking Status: Never smoker Past Alcohol Use History: None Reported Past Drug Use History: None Reported - Past Family History Father Family Medical History: Cancer Additional Family Medical History / Comment(s): Prostate cancer. Medications and Allergies Home Medications Medication Instructions Recorded Confirmed Type lisinopriL [Zestril] 10 mg PO QAM 01/12/15 07/31/22 History Escitalopram [Lexapro] 10 mg PO QAM 05/23/20 07/31/22 History Phentermine HCl 1 tab PO Q48H 07/31/22 07/31/22 History Allergies Allergy/AdvReac Type Severity Reaction Status Date / Time No Known Allergies Allergy Verified 07/31/22 08:44 Surgical - Exam Vital Signs Temp Pulse Resp BP Pulse Ox 97.2 F L 77 18 165/72 97 08/02/22 08:36 08/02/22 08:36 08/02/22 08:36 08/02/22 08:36 08/02/22 08:36 - General well developed, well nourished, no distress - Eyes PERRL - ENT normal pinna - Neck no masses - Respiratory normal expansion - Cardiovascular Rhythm: regular - Abdomen Abdomen: soft, non tender Assessment and Plan Assessment: Morbid obesity, BMI 42 GERD We'll perform EGD.
--- NOTE | 2022-08-02 09:48 | P.OP ---
Date of Procedure: 08/02/22 Preoperative Diagnosis: GERD Morbid obesity Postoperative Diagnosis: Mild antral gastritis Morbid obesity Procedure(s) Performed: EGD Anesthesia: MAC Surgeon: Doc Hernandez Pathology: other (Antrum) Condition: stable Disposition: PACU Description of Procedure: The patient's placed on the endoscopy table in the lateral position. Seed IV sedation. The gastroscope placed oropharynx passed in the esophagus and stomach. Scope was placed through the pylorus. First and second portion of the duodenum appeared normal. Scope was then brought back the antrum this was mildly inflamed. A biopsies performed. Scope was unretroflexed and remainder the stomach appeared normal. There was no significant hiatal hernia. The GE junction was at 40 cm. The distal esophagus appeared normal. The proximal esophagus appeared normal. Scope withdrawn for patient.
[2022-08-02 10:07] VITALS: BP 122/65; PULSE 66; RESP 16
== END 2022-08-02 10:24 | disposition home or self-care (01) ==
LOC: ORWHC2ENDO 08:19
PROVIDERS: ATTEND Surgery
DX: K29.70 Gastritis, unspecified, without bleeding (principal); K21.9 Gastro-esophageal reflux disease without esophagitis; K31.9 Disease of stomach and duodenum, unspecified; I10 Essential (primary) hypertension; E78.5 Hyperlipidemia, unspecified; G47.33 Obstructive sleep apnea (adult) (pediatric); E66.01 Morbid (severe) obesity due to excess calories; Z80.42 Family history of malignant neoplasm of prostate; Z79.899 Other long term (current) drug therapy; Z68.42 Body mass index [BMI] 45.0-49.9, adult
CPT/HCPCS: 88305; 43239; J2704; J2001

== ENCOUNTER → 2022-08-13 | Outpatient (CLI) | payer MEDICAID | END | disposition home or self-care (01) | LOC: LABPAT 15:08 | PROVIDERS: ATTEND Surgery | DX: Z01.818 Encounter for other preprocedural examination (principal); R94.31 Abnormal electrocardiogram [ECG] [EKG] | CPT/HCPCS: 93005 ==

== ENCOUNTER → 2022-12-21 | Outpatient (CLI) | payer MEDICAID ==
[2022-12-21 11:06] LABS: Basophils # (A) 0.07 X 10*3/uL (0.00-0.10); Eosinophils # (A) 0.47 X 10*3/uL (0.04-0.35); Eosinophils % (A) 6.7 %; HCT 42.5 % (39.6-50.0); HGB 14.7 g/dL (13.0-17.0); Immature Grans, Automated 0.9 %; Lymphocytes # (A) 2.68 X 10*3/uL (0.90-5.00); Lymphocytes % (A) 38.4 %; MCH 29.9 pg (27.0-32.0); MCHC 34.6 g/dL (32.0-37.0); MCV 86.6 fL (80.0-97.0); Mean Platelet Volume 9.9 fL (9.5-12.2); Monocytes # (A) 0.49 X 10*3/uL (0.20-1.00); NRBC Per 100 WBC 0 /100 WBCS (0.0-0.0); Neutrophils # (A) 3.21 X 10*3/uL (1.80-7.70); Platelet Count 254 X 10*3/uL (140-440); RBC 4.91 X 10*6/uL (4.40-5.60); RDW 12.1 % (11.5-14.5); WBC 6.98 X 10*3/uL (4.50-10.00)
[2022-12-21 11:38] LABS: Albumin 4.8 g/dL (3.8-4.9); Albumin/Globulin Ratio 2.04 (1.60-3.17); Anion Gap 9.6 mmol/L (10.00-18.00); BUN/Creat Ratio 27.44 Ratio (12.00-20.00); Blood Urea Nitrogen 26.4 mg/dL (9.0-27.0); Calcium 9.6 mg/dL (8.7-10.3); Carbon Dioxide 27.9 mmol/L (20.0-27.5); Globulin 2.3 g/dL (1.6-3.3); Non-African American GFR(CKD) 97.5 (60.0-200.0); Potassium 4.4 mmol/L (3.5-5.5); Total Bilirubin 0.4 mg/dL (0.30-1.20); Total Protein 7.1 g/dL (6.2-8.2)
== END | disposition home or self-care (01) ==
LOC: LABPAT 07:13
PROVIDERS: ATTEND Surgery
DX: Z01.812 Encounter for preprocedural laboratory examination (principal)
CPT/HCPCS: 36415; 80053; 85025

== ENCOUNTER 2022-12-24 07:32 | Inpatient (IN) | payer MEDICAID ==
[~2022-12-24 07:32] MED LIST changes: +ENOXAPARIN 40 MG/0.4 ML SYRINGE SQ PRN; -LIDOCAINE 1% (10MG/ML) FOR IV START INTRADERMA PRN; -LIDOCAINE 1% INJ 10MG/ML (20 ML MDV) ONE; -PROPOFOL 10 MG/ML 20 ML VIAL IV ONE; +ceFAZolin 3 GM in SODIUM CHLORIDE 0.9% 100 ML IVPB PRN
[2022-12-24] MEDS ORDERED: DEXAMETHASONE SOD PHOSPHATE 4 MG/ML 1 ML VIAL IV ONE (07:42)
[2022-12-24] MEDS ORDERED: HYDROmorphone 0.5 MG/0.5 ML SYRINGE IVP PRN ×2 (07:42→10:08)
[2022-12-24] MEDS ORDERED: MIDAZOLAM 2 MG/2 ML VIAL IV PRN (07:42)
[2022-12-24] MEDS ORDERED: LIDOCAINE 1% (10MG/ML) FOR IV START INTRADERMA PRN (07:42)
[2022-12-24] MEDS ORDERED: ONDANSETRON 4 MG/2 ML VIAL IVP ONE (07:42)
[2022-12-24] MEDS ORDERED: LACTATED RINGERS 1,000 ML IV SCH (07:42)
--- NOTE | 2022-12-24 08:37 | P.GSHP ---
History of Present Illness H&P Date: 12/24/22 Chief Complaint: Morbid obesity Is a 42-year-old male who has history of morbid obese. His BMI is 43. Patient presents today for laparoscopic sleeve gastrectomy. Patient's aware the risk of gastric injury, bleeding scarring and reflux and dysphagia. Past Medical History Past Medical History: Hyperlipidemia, Hypertension, Sleep Apnea/CPAP/BIPAP Additional Past Medical History / Comment(s): uses c-pap machine History of Any Multi-Drug Resistant Organisms: None Reported Past Surgical History: Orthopedic Surgery Additional Past Surgical History / Comment(s): Carpal tunnel right hand, right knee surgery., EGD Past Anesthesia/Blood Transfusion Reactions: No Reported Reaction Past Psychological History: Anxiety Smoking Status: Never smoker Past Alcohol Use History: None Reported Past Drug Use History: None Reported - Past Family History Father Family Medical History: Cancer Additional Family Medical History / Comment(s): Prostate cancer. Medications and Allergies Home Medications Medication Instructions Recorded Confirmed Type lisinopriL [Zestril] 10 mg PO QAM 01/12/15 12/24/22 History Escitalopram [Lexapro] 20 mg PO DAILY 12/24/22 12/24/22 History Allergies Allergy/AdvReac Type Severity Reaction Status Date / Time No Known Allergies Allergy Verified 12/24/22 07:48 Surgical - Exam Vital Signs Temp Pulse Resp BP Pulse Ox 97.4 F L 66 16 111/62 96 12/24/22 07:53 12/24/22 07:53 12/24/22 07:53 12/24/22 07:53 12/24/22 07:53 - General well developed, well nourished, no distress - Eyes PERRL - ENT normal pinna - Neck no masses - Respiratory normal expansion - Cardiovascular Rhythm: regular - Abdomen Abdomen: soft, non tender Assessment and Plan Assessment: Morbid obesity. We'll perform laparoscopic sleeve gastrectomy.
[2022-12-24] MEDS ORDERED: SUCCINYLCHOLINE CHLORIDE 200 MG/10 ML VIAL IV ONE (08:49)
[2022-12-24] MEDS ORDERED: KETOROLAC 15 MG/ML 1 ML VIAL ONE (08:49)
[2022-12-24] MEDS ORDERED: HYDROmorphone (PF) 1 MG/ML ONE (08:49)
[2022-12-24] MEDS ORDERED: fentaNYL (PF) 50 MCG/ML 2 ML AMP ONE (08:49)
[2022-12-24] MEDS ORDERED: ePHEDrine 50 MG/ML 1 ML VIAL ONE (08:49)
[2022-12-24] MEDS ORDERED: PROPOFOL 10 MG/ML 20 ML VIAL IV ONE (08:49)
[2022-12-24] MEDS ORDERED: GLYCOPYRROLATE 0.2 MG/ML 2 ML VIAL ONE (08:49)
[2022-12-24] MEDS ORDERED: MIDAZOLAM 2 MG/2 ML VIAL ONE (08:49)
[2022-12-24] MEDS ORDERED: ROCURONIUM 10 MG/ML (5 ML VIAL) IV ONE (08:49)
[2022-12-24] MEDS ORDERED: NEOSTIGMINE 1 MG/ML 10 ML VIAL ONE (08:49)
[2022-12-24] MEDS ORDERED: BUPIVACAINE (PF) 0.25% 30 ML VIAL SQ ONE (09:20)
[2022-12-24] MEDS ORDERED: LACTATED RINGERS 1,000 ML IV ONE (09:33)
[2022-12-24] MEDS ORDERED: ONDANSETRON 4 MG/2 ML VIAL IVP PRN (10:08)
[2022-12-24] MEDS ORDERED: NALOXONE 0.4 MG/ML 1 ML VIAL IV PRN (10:08)
--- NOTE | 2022-12-24 10:08 | P.OP ---
Date of Procedure: 12/24/22 Preoperative Diagnosis: Morbid obesity, BMI 43 Postoperative Diagnosis: Morbid obesity, BMI 43 Procedure(s) Performed: Laparoscopic sleeve gastrectomy Anesthesia: GETA Estimated Blood Loss (ml): 5 Pathology: other (Stomach) Condition: stable Disposition: PACU Description of Procedure: The patient was placed on the operating room table in the supine position. She received general anesthesia and then was placed in dorsal lithotomy position. Her abdomen was prepped and draped in sterile fashion. The skin incision sites were anesthetized 1% local Xylocaine. And then the skin was incised with an 11 blade in the left lateral position. Using a blade less trocar under direct visualization the peritoneal cavity was entered. The abdomen was insufflated and then a 5 mm laparoscope was placed into the peritoneal cavity. A 5 mm trocar was placed in the right epigastric, and right lateral position. A 15 mm trocar was placed in the supra-umbilical position and another 5 mm trocar was placed in the left lateral position. The left lateral lobe of the liver was retracted. The stomach was visualized. The greater curvature of the stomach was then dissected using the Harmonic scissors. The dissection occurred approximately 5 cm from the pylorus to the level of the left alek. There was no hiatal hernia seen. At this point a 40-British bougie dilator was placed the oropharynx and passed into the esophagus and into the stomach by the PLANT OPERATOR/SHIFT SUPERVISOR. The sleeve gastrectomy was performed by using the powered echelon stapler with a seam guard buttress material. Sequential firings of the stapler were performed. The gastric remnant was then brought out through the 15 mm trocar site. The dilator was withdrawn. And a orogastric tube was replaced into the stomach. The stomach was insufflated with 200 mL of methylene blue normal saline. There was no evidence of extravasation. The abdomen was irrigated there is no bleeding seen. The Mike-Jon device was used to close the 15 mm trocar with 0 Vicryl. Skin was closed with interrupted 3-0 Monocryl sutures once the trochars withdrawn. Dermabond dressing was applied. Patient was sent to recovery in stable condition.
[2022-12-24] MEDS: KETOROLAC 15 MG/ML 1 ML VIAL IVP SCH ×3 (12:03→23:24)
[2022-12-24] MEDS: HYDROmorphone 1 MG/ML 1 ML SYRINGE IVP PRN ×3 (12:53→20:27)
[2022-12-24] MEDS: ALBUTEROL NEBULIZED 2.5 MG/3 ML INHALATION SCH ×3 (12:58→20:38)
[2022-12-24] MEDS: 0.9% NACL WITH KCL 20 MEQ/L 1,000 ML IV SCH ×2 (13:23→16:54)
[2022-12-24] MEDS: ceFAZolin 3 GM in SODIUM CHLORIDE 0.9% 100 ML IVPB SCH (16:46)
[2022-12-24] MEDS: HYDROcodone/APAP 15 ML SOLUTION PO PRN ×2 (18:47→23:23)
[2022-12-24] MEDS: ENOXAPARIN 40 MG/0.4 ML SYRINGE SQ SCH (20:28)
[2022-12-25] MEDS: ceFAZolin 3 GM in SODIUM CHLORIDE 0.9% 100 ML IVPB SCH (00:54)
[2022-12-25] MEDS: HYDROmorphone 1 MG/ML 1 ML SYRINGE IVP PRN ×3 (02:23→11:50)
[2022-12-25] MEDS: 0.9% NACL WITH KCL 20 MEQ/L 1,000 ML IV SCH ×2 (02:24→08:45)
[2022-12-25] MEDS: KETOROLAC 15 MG/ML 1 ML VIAL IVP SCH ×4 (05:35→23:51)
[2022-12-25] MEDS: HYDROcodone/APAP 15 ML SOLUTION PO PRN ×4 (05:36→23:50)
[2022-12-25 07:59] LABS: Basophils % (A) 0 %; Eosinophils # (A) 0.1 k/uL (0-0.7); Eosinophils % (A) 1 %; HCT 40.3 % (39.0-53.0); HGB 13.5 gm/dL (13.0-17.5); Lymphocytes # (A) 1.5 k/uL (1.0-4.8); Lymphocytes % (A) 15 %; MCH 29.7 pg (25.0-35.0); MCHC 33.5 g/dL (31.0-37.0); MCV 88.5 fL (80.0-100.0); Mean Platelet Volume 7.4; Monocytes # (A) 0.5 k/uL (0-1.0); Monocytes % (A) 5 %; Neutrophils % (A) 79 %; Platelet Count 260 k/uL (150-450); RBC 4.56 m/uL (4.30-5.90); RDW 12.8 % (11.5-15.5); WBC 10.2 k/uL (3.8-10.6)
[2022-12-25 08:37] LABS: African American GFR (CKD) >90 (>60 ml/min/1.73 sqM); Anion Gap 9 mmol/L; Blood Urea Nitrogen 11 mg/dL (9-20); Calcium 8.3 mg/dL (8.4-10.2); Carbon Dioxide 27 mmol/L (22-30); Chloride 101 mmol/L (98-107); Magnesium 1.8 mg/dL (1.6-2.3); Non-African American GFR(CKD) >90 (>60 ml/min/1.73 sqM); Phosphorus 3.3 mg/dL (2.5-4.5); Potassium 4.2 mmol/L (3.5-5.1); Sodium 137 mmol/L (137-145)
[2022-12-25] MEDS: PANTOPRAZOLE 40 MG/10 ML VIAL IV SCH (08:44)
[2022-12-25] MEDS: ENOXAPARIN 40 MG/0.4 ML SYRINGE SQ SCH ×2 (08:44→22:06)
[2022-12-25] MEDS: 1: MVI, ADULT NO.4 WITH VIT K 10 ML, THIAMINE 100 MG, FOLIC ACID 1 MG, POTASSIUM CHLORID IV SCH ×18 (08:45→15:27)
[2022-12-25] MEDS: ALBUTEROL NEBULIZED 2.5 MG/3 ML INHALATION SCH ×4 (09:46→20:42)
[2022-12-25] MEDS: SIMETHICONE 40 MG/0.6 ML DROPS 2,000 MG/30 ML BOTTLE PO SCH ×3 (12:15→22:05)
--- NOTE | 2022-12-25 12:34 | P.CONS ---
History of Present Illness - Reason for Consult Consult date: 12/25/22 Medical management hypertension, Requesting physician: Doc Hernandez - Chief Complaint Status post elective laparoscopic sleeve gastrectomy for morbid obesity - History of Present Illness This a 42-year-old gentleman status post laparoscopic sleeve gastrectomy for morbid obesity, BMI 43. Tolerated procedure well. Past medical history significant for hypertension, hyperlipidemia, sleep apnea, wears CPAP machine, anxiety and multiple other medical issues. Complains of nausea, abdominal gas pain, bloating, denies passing flatus or bowel movement. Ambulating in hallway, several laps around the unit, tolerating exertion well. Denies chest pain, palpitations or shortness of breath. Maintained on IV fluid hydration. Blood pressures stable, maintaining O2 sats in the mid to high 90s on room air. Afebrile. Normal WBC, hemoglobin 13.5, platelets 260, electrolytes within normal limits, BUN 11, creatinine 0.74. Denies chest pain, palpitations or shortness of breath. Review of Systems ROS Statement: Those systems with pertinent positive or pertinent negative responses have been documented in the HPI. ROS Other: All systems not noted in ROS Statement are negative. Past Medical History Past Medical History: Hyperlipidemia, Hypertension, Sleep Apnea/CPAP/BIPAP Additional Past Medical History / Comment(s): uses c-pap machine History of Any Multi-Drug Resistant Organisms: None Reported Past Surgical History: Orthopedic Surgery Additional Past Surgical History / Comment(s): Carpal tunnel right hand, right knee surgery., EGD Past Anesthesia/Blood Transfusion Reactions: No Reported Reaction Past Psychological History: Anxiety Smoking Status: Never smoker Past Alcohol Use History: None Reported Past Drug Use History: None Reported - Past Family History Father Family Medical History: Cancer Additional Family Medical History / Comment(s): Prostate cancer. Medications and Allergies Home Medications Medication Instructions Recorded Confirmed Type lisinopriL [Zestril] 10 mg PO QAM 01/12/15 12/24/22 History Escitalopram [Lexapro] 20 mg PO DAILY 12/24/22 12/24/22 History Allergies Allergy/AdvReac Type Severity Reaction Status Date / Time No Known Allergies Allergy Verified 12/24/22 07:48 Physical Exam Vitals: Vital Signs Temp Pulse Pulse Resp BP BP Pulse Ox 12/25/22 09:46 95 12/25/22 09:44 99 12/25/22 07:50 98.9 F 72 16 125/69 99 12/25/22 02:26 98.6 F 75 17 120/67 97 12/24/22 19:43 97.7 F 79 19 128/77 94 L 12/24/22 14:00 97.8 F 77 17 133/73 96 12/24/22 12:49 98 FiO2 12/25/22 09:46 12/25/22 09:44 21 12/25/22 07:50 12/25/22 02:26 12/24/22 19:43 12/24/22 14:00 12/24/22 12:49 Intake and Output 12/24/22 12/25/22 12/25/22 22:59 06:59 14:59 Other: # Voids 3 PHYSICAL EXAM: VITAL SIGNS: As above GENERAL: Sitting standing up next to bed, no acute distress HEENT: Normocephalic, atraumatic Conjunctivae normal. eyes normal. NECK: Supple, No JVD. No thyroid enlargement. No LNs CARDIOVASCULAR: S1, S2 regular.. No murmur RESPIRATION: Unlabored, Breath sounds diminished in the bases. No rhonchi or crackles. ABDOMEN: Soft, status post surgery, binder present, LEGS: No edema. no swelling PSYCHIATRY: Alert and oriented X3, mood and affect normal. NERVOUS SYSTEM: Cranial N 2-12 grossly normal. Moves all 4 limbs. No focal deficits. Strength and sensation grossly intact. Skin: warm and dry, no rash noted Results CBC & Chem 7: 12/25/22 07:33 12/25/22 07:33 Labs: Abnormal Lab Results - Last 24 Hours (Table) 12/25/22 12/25/22 Range/Units 07:33 07:33 Neutrophils # 8.0 H (1.3-7.7) k/uL Calcium 8.3 L (8.4-10.2) mg/dL Assessment and Plan Assessment: Morbid obesity, BMI 43, status post laparoscopic sleeve gastrectomy Obstructive sleep apnea, wears CPAP machine Hypertension Hyperlipidemia Anxiety Plan: Continue on current medication regime ,monitoring and symptomatic treatment. Maintain Antiemetics/simethicone.Pain management/diet advancement as per general surgery. Aggressive pulmonary toileting with incentive spirometer reinforced. Patient's blood pressures mildly softer, stable, will hold on resuming his BEATRIZ inhibitor at this time. Increase ambulation as tolerated. The impression and plan of care has been dictated as directed. : I performed a history and examination of this patient, discussed the same with the dictator. I agree with the dictator's note ,documented as a scribe. Any additional findings or plans will be noted..
[2022-12-25 12:37] VITALS: BMI 43.0
[2022-12-25] MEDS ORDERED: SIMETHICONE 80 MG CHEWABLE PO SCH (13:00)
--- NOTE | 2022-12-25 14:55 | P.PN ---
Subjective Progress Note Date: 12/25/22 CHIEF COMPLAINT: Morbid obesity HISTORY OF PRESENT ILLNESS: Patient is postop day #1 status post laparoscopic sleeve gastrectomy. Patient complains of abdominal pain. He is requiring the IV Dilaudid. He denies any difficulty swallowing. Does report pain at the stomach area after drinking liquids. He did report nausea. He has been up and ambulating. No flatus. Denies any difficulty urinating. Afebrile. WBC is 10.2 HB 13.5 seconds 137 potassium 4.2 creatinine 0.74 magnesium 1.8 PHYSICAL EXAM: VITAL SIGNS: Reviewed. GENERAL: Well-developed in no acute distress. HEENT: No sclera icterus. Extraocular movements grossly intact. Moist buccal mucosa. Head is atraumatic, normocephalic. ABDOMEN: Soft. Nondistended. Incision sites clean dry and intact NEUROLOGIC: Alert and oriented. Cranial nerves II through XII grossly intact. ASSESSMENT: 1. Morbid obesity status post laparoscopic sleeve gastrectomy PLAN: -Continue pain management -Add gas drops -Encourage patient to ambulate -Continue IV fluids -Continue antiemetics -GI prophylaxis Protonix and DVT prophylaxis Lovenox Physician Nuclear Criticality Safety Engineer note has been reviewed by physician. Signing provider agrees with the documented findings, assessment, and plan of care. Objective - Vital Signs Vital signs: Vital Signs Temp 98.4 F 12/25/22 14:00 Pulse 68 12/25/22 14:00 Resp 16 12/25/22 14:00 BP 105/65 12/25/22 14:00 Pulse Ox 95 12/25/22 14:00 FiO2 21 12/25/22 09:44 Intake & Output 12/24/22 12/25/22 12/25/22 18:59 06:59 18:59 Intake Total 3300 200 Output Total 10 Balance 3290 200 Weight 140.1 kg 140.1 kg Intake: IV 2000 Intake, IV Titration 1300 Amount 0.9% NaCl with KCl 20 Meq 1200 /l 1,000 ml @ 150 mls/hr IV .[id number] [facility]RE[facility] Rx#: [id number] ceFAZolin 3 gm In Sodium 100 Chloride 0.9% 100 ml @ 200 mls/hr IVPB Q8H [facility]RE[facility] Rx#:[id number] Oral 200 Output: Estimated Blood Loss 10 Other: # Voids 3 - Labs CBC & Chem 7: 12/25/22 07:33 12/25/22 07:33 Labs: Abnormal Lab Results - Last 24 Hours (Table) 12/25/22 12/25/22 Range/Units 07:33 07:33 Neutrophils # 8.0 H (1.3-7.7) k/uL Calcium 8.3 L (8.4-10.2) mg/dL
[2022-12-26] MEDS: HYDROcodone/APAP 15 ML SOLUTION PO PRN ×3 (04:32→12:26)
[2022-12-26] MEDS: KETOROLAC 15 MG/ML 1 ML VIAL IVP SCH (06:04)
[2022-12-26 07:25] VITALS: BP 128/68; PULSE 79; RESP 16; TEMP 99.5
[2022-12-26] MEDS: ALBUTEROL NEBULIZED 2.5 MG/3 ML INHALATION SCH ×2 (08:12→12:02)
[2022-12-26] MEDS: PANTOPRAZOLE 40 MG/10 ML VIAL IV SCH (08:26)
[2022-12-26] MEDS: ENOXAPARIN 40 MG/0.4 ML SYRINGE SQ SCH (08:26)
[2022-12-26] MEDS: SIMETHICONE 40 MG/0.6 ML DROPS 2,000 MG/30 ML BOTTLE PO SCH ×2 (08:26→13:36)
--- NOTE | 2022-12-26 13:01 | P.PN ---
Subjective Progress Note Date: 12/26/22 History of Present Illness This a 42-year-old gentleman status post laparoscopic sleeve gastrectomy for morbid obesity, BMI 43. Tolerated procedure well. Past medical history sig nificant for hypertension, hyperlipidemia, sleep apnea, wears CPAP machine, anxiety and multiple other medical issues. Complains of nausea, abdominal gas pain, bloating, denies passing flatus or bowel movement. Ambulating in hallway, several laps around the unit, tolerating exertion well. Denies chest pain, palpitations or shortness of breath. Maintained on IV fluid hydration. Blood pressures stable, maintaining O2 sats in the mid to high 90s on room air. Afebrile. Normal WBC, hemoglobin 13.5, platelets 260, electrolytes within normal limits, BUN 11, creatinine 0.74. Denies chest pain, palpitations or shortness of breath. 12/26/2022 significant clinical improvement. Tolerating sips of. After clear liquid diet. Passing flatus. Abdominal discomfort improved. Denies nausea, vo miting or diarrhea. Ambulating, tolerating exertion well. Denies chest pain, palpitations or shortness of breath. Maintaining O2 sats in the high 90s on room air.VSS. Objective - Vital Signs Vital signs: Vital Signs Temp 99.5 F 12/26/22 07:23 Pulse 79 12/26/22 08:00 Resp 16 12/26/22 08:00 BP 128/68 12/26/22 07:23 Pulse Ox 96 12/26/22 08:13 FiO2 21 12/25/22 09:44 Intake & Output 12/25/22 12/26/22 12/26/22 18:59 06:59 18:59 Intake Total 1000 200 Balance 1000 200 Weight 140.1 kg Intake: Intake, IV Titration 800 Amount 0.9% NaCl with KCl 20 Meq 800 /l 1,000 ml @ 100 mls/hr IV .BY DURATION LATRELL Rx#: [id number] Oral 200 200 Other: # Voids 1 - Exam PHYSICAL EXAM: VITAL SIGNS: As above GENERAL: Alert and oriented 3, Sitting up in chair, no acute distress NECK: Supple, No JVD. CARDIOVASCULAR: S1, S2 regular.. No murmur RESPIRATION: Unlabored, bilateral equal hand clear air entry ABDOMEN: Soft, status post surgery, binder present LEGS: No edema. no swellng. NERVOUS SYSTEM: Cranial N 2-12 grossly normal. No focal deficits. Strength and sensation grossly intact. Skin: warm and dry, no rash noted - Labs CBC & Chem 7: 12/25/22 07:33 12/25/22 07:33 Assessment and Plan Assessment: Morbid obesity, BMI 43, status post laparoscopic sleeve gastrectomy Obstructive sleep apnea, wears CPAP machine Hypertension Hyperlipidemia Anxiety Plan: Continue on current medication regime ,monitoring and symptomatic treatment. Discharge planning in progress as per primary. Maintain aggressive pulmonary toileting with incentive spirometer reinforced. BEATRIZ inhibitor currently on hold, Repeat blood pressure ordered. The impression and plan of care has been dictated as directed. : I performed a history and examination of this patient, discussed the same with the dictator. I agree with the dictator's note ,documented as a scribe. Any additional findings or plans will be noted..
--- NOTE | 2022-12-26 14:07 | P.DS ---
Providers Date of admission: 12/24/22 07:32 Expected date of discharge: 12/26/22 Attending physician: Doc Hernandez Consults: 12/24/22 10:08 Consult Physician Routine Consulting Provider: Jamari Barrios Reason/Comments: med manage Do you want consulting provider notified?: Yes Primary care physician: Jamari Barrios Hospital Course: Discharge diagnosis 1. Morbid obesity status post laparoscopic sleeve gastrectomy Hospital course This is a 42-year-old male with a known history of morbid obesity. He is status post laparoscopic sleeve gastrectomy. He is tolerating liquids. His pain is controlled. He is having flatus. He has been up and ambulating. He is afebrile. He is stable for discharge. Please refer to chart for any further details. Physician Cardiograph Operator note has been reviewed by physician. Signing provider agrees with the documented findings, assessment, and plan of care. Patient Condition at Discharge: Stable Plan - Discharge Summary Discharge Rx Participant: Yes New Discharge Prescriptions: New Simethicone 40 mg/0.6 ml Drops [Mylicon Drops] 40 mg PO PCHS PRN #30 ml PRN Reason: Gas Omeprazole [PriLOSEC] 40 mg PO DAILY #30 cap bisacodyL [Dulcolax] 5 mg PO DAILY PRN #10 tab PRN Reason: Constipation oxyCODONE HCL [OxyIR] 5 mg PO Q6H PRN 3 Days #12 tab PRN Reason: Pain Ondansetron Odt [Zofran Odt] 4 mg PO Q8HR PRN #9 tab PRN Reason: Nausea Acetaminophen Tab [Tylenol Tab] 650 mg PO Q4H PRN #30 tablet PRN Reason: Pain Continue Escitalopram [Lexapro] 20 mg PO DAILY No Action lisinopriL [Zestril] 10 mg PO QAM Discharge Medication List lisinopriL [Zestril] 10 mg PO QAM 01/12/15 [History] Escitalopram [Lexapro] 20 mg PO DAILY 12/24/22 [History] Acetaminophen Tab [Tylenol Tab] 650 mg PO Q4H PRN #30 tablet 12/26/22 [Rx] Omeprazole [PriLOSEC] 40 mg PO DAILY #30 cap 12/26/22 [Rx] Ondansetron Odt [Zofran Odt] 4 mg PO Q8HR PRN #9 tab 12/26/22 [Rx] Simethicone 40 mg/0.6 ml Drops [Mylicon Drops] 40 mg PO PCHS PRN #30 ml 12/26/22 [Rx] bisacodyL [Dulcolax] 5 mg PO DAILY PRN #10 tab 12/26/22 [Rx] oxyCODONE HCL [OxyIR] 5 mg PO Q6H PRN 3 Days #12 tab 12/26/22 [Rx] [facility] [facility] [place] [facility] Week Activity/Diet/Wound Care/Special Instructions: No driving while taking OxyIR No lifting over 10 pounds Shower daily. No soaking or tub baths for 2 weeks Very light activity until you are reevaluated at your follow up appointment with your surgeon No straws or carbonated beverages Continue bariatric liquid diet Discharge Disposition: HOME SELF-CARE
[2022-12-26] MEDS ORDERED: ESCITALOPRAM 20 MG TAB PO SCH (15:00)
[2022-12-27] MEDS ORDERED: lisinopriL 10 MG TAB PO SCH (09:00)
== END 2022-12-26 15:12 | disposition home or self-care (01) | DRG 621 ==
LOC: 2ORMAIN 07:32 → 4SSUR 10:39
PROVIDERS: ADMIT Surgery; ATTEND Surgery
PROC: 0DB64Z3 Excision of Stomach, Percutaneous Endoscopic Approach, Vertical (ICD-10-PCS; principal; 2022-12-24 08:50)
DX: E66.01 Morbid (severe) obesity due to excess calories (principal); E78.5 Hyperlipidemia, unspecified; Z68.41 Body mass index [BMI] 40.0-44.9, adult; I10 Essential (primary) hypertension; G47.33 Obstructive sleep apnea (adult) (pediatric); Z28.310 Unvaccinated for COVID-19; F41.9 Anxiety disorder, unspecified; Z79.899 Other long term (current) drug therapy; Z71.3 Dietary counseling and surveillance
CPT/HCPCS: 80051; 82310; 82565; 83735; 84100; 84520; 85025; 88307; 94760

== ENCOUNTER → 2022-12-28 | Outpatient (CLI) | payer MEDICAID ==
[2022-12-28 10:55] VITALS: BP 124/74; PULSE 60; RESP 13; TEMP 98.9; BMI 40.6
== END ==
LOC: BARWHC3 10:09
PROVIDERS: ATTEND Surgery
DX: E66.01 Morbid (severe) obesity due to excess calories (principal); Z68.41 Body mass index [BMI] 40.0-44.9, adult
CPT/HCPCS: 99211

== ENCOUNTER → 2022-12-31 | Outpatient (CLI) | payer MEDICAID ==
[2022-12-31 14:31] VITALS: BMI 41.0
[2022-12-31 15:10] VITALS: BP 116/69; PULSE 67; TEMP 98
== END ==
LOC: BARWHC3 13:35
PROVIDERS: ATTEND Surgery
DX: E66.01 Morbid (severe) obesity due to excess calories (principal); Z68.41 Body mass index [BMI] 40.0-44.9, adult; Z71.3 Dietary counseling and surveillance
CPT/HCPCS: 97802; 99211

== ENCOUNTER → 2023-01-14 | Outpatient (CLI) | payer MEDICAID ==
[2023-01-14 13:35] VITALS: BP 143/78; PULSE 60; TEMP 98; BMI 37.4
--- NOTE | 2023-01-16 09:35 | P.HPBAR ---
Bariatric H&P - History & Physicial H&P Date: 01/14/23 History & Physicial: Visit/CC: sleeve F/U Patient initial contact: Initial weight: Initial weight in pounds: Height: 6 ft 0.5 in Initial BMI: Last weight: Current weight: 126.961 kg Current weight in pounds: 279.90 Current BMI: 37.4 [place] body weight (based on NIH guidelines): 82.1 kg Excess body weight loss: The patient is a 42 year-old M who presents for Bariatric Assessment. Patient presents today for sleeve gastrectomy O. He is an excellent weight loss. Patient has minimal complaints of pain. He's had some minimal GERD. Past Medical History Past Medical History: Hyperlipidemia, Hypertension, Sleep Apnea/CPAP/BIPAP Additional Past Medical History / Comment(s): CPAP use. History of Any Multi-Drug Resistant Organisms: None Reported Past Surgical History: Orthopedic Surgery Additional Past Surgical History / Comment(s): Carpal tunnel right hand, right knee surgery. Past Anesthesia/Blood Transfusion Reactions: No Reported Reaction Past Psychological History: No Psychological Hx Reported Smoking Status: Never smoker Past Alcohol Use History: None Reported Past Drug Use History: None Reported - Past Family History Father Family Medical History: Cancer Additional Family Medical History / Comment(s): Prostate cancer. Surgical - Exam Vital Signs Temp Pulse BP 98.0 F 60 143/78 01/14/23 13:32 01/14/23 13:32 01/14/23 13:32 - General well developed, well nourished - Eyes PERRL - ENT normal pinna - Neck no masses - Respiratory normal expansion - Cardiovascular Rhythm: regular - Abdomen Abdomen: soft, non tender Bariatric Assessment & Plan Plan: Status post sleeve gastric. Patient's doing quite well. He'll follow-up in 4 weeks. His GERD is minimal will be observed. Bariatric Checklist Checklist: Plan: Checklist: EGD: 1. Hiatal hernia: 2. H. Pylori: HgbA1c: Vitamin D: Smoking: Never smoker Primary care physician referral: Dr. Barrios Psychiatry clearance: Cardiology clearance: Sleep study: Diet journal: VTE risk score: VTE risk level: Rehab needs at discharge:
== END ==
LOC: BARWHC3 13:22
PROVIDERS: ATTEND Surgery
DX: E66.01 Morbid (severe) obesity due to excess calories (principal); E78.5 Hyperlipidemia, unspecified; I10 Essential (primary) hypertension; G47.30 Sleep apnea, unspecified; K21.9 Gastro-esophageal reflux disease without esophagitis; Z79.899 Other long term (current) drug therapy; Z99.89 Dependence on other enabling machines and devices; Z98.84 Bariatric surgery status; Z68.37 Body mass index [BMI] 37.0-37.9, adult
CPT/HCPCS: 97803; 99211

== ENCOUNTER → 2023-01-14 | Outpatient (CLI) | payer MEDICAID ==
[2023-01-14 20:10] LABS: HCT 42.1 % (39.6-50.0); HGB 14.1 d/dL (12.0-15.0); MCH 29.9 pg (27.0-32.0); MCHC 33.5 d/dL (32.0-37.0); MCV 89.4 FL (80.0-97.0); Mean Platelet Volume 10.5 FL (9.5-12.2); NRBC Per 100 WBC 0 X 10*3/uL (0.00-0.01); Platelet Count 286 X 10*3/uL (140-440); RBC 4.71 X 10*6/uL (4.40-5.60); RDW 12.6 % (11.5-14.5); WBC 6.73 X 10*3/uL (4.50-10.00)
[2023-01-15 01:06] LABS: % Iron Saturation 21.95 (15.00-50.00); ALT 24 U/L (10-49); AST 18 U/L (14-35); Albumin 4.8 d/dL (3.8-4.9); Alkaline Phosphatase 60 U/L (41-126); Blood Urea Nitrogen 18.3 mg/dL (9.0-27.0); Calcium 9.6 mg/dL (8.7-10.3); Carbon Dioxide 27.6 mmol/L (21.6-31.8); Chloride 101 mmol/L (96-109); Globulin 2.4 d/dL (1.6-3.3); Glucose 87 mg/dL (70-110); Iron 63 UG/DL (65-175); Magnesium 2.1 mg/dL (1.5-2.4); Potassium 4.4 mmol/L (3.5-5.5); Sodium 139 mmol/L (135-145); Total Bilirubin 0.4 mg/dL (0.3-1.2); Total Iron Binding Capacity 287 UG/DL (228-460); Total Protein 7.2 d/dL (6.2-8.2)
[2023-01-15 12:39] LABS: Zinc, Serum 82 ug/dL (60-130)
[2023-01-16 06:28] LABS: Vitamin A 41 ug/dL (38-106)
== END | disposition home or self-care (01) ==
LOC: LABWHC1 13:54
PROVIDERS: ATTEND Surgery
DX: E66.01 Morbid (severe) obesity due to excess calories (principal); D50.8 Other iron deficiency anemias; E44.0 Moderate protein-calorie malnutrition; E55.9 Vitamin D deficiency, unspecified; T56.894A Toxic effect of other metals, undetermined, initial encounter
CPT/HCPCS: 36415; 80053; 82306; 82607; 82728; 82746; 83540; 83550; 83735; 84255; 84425; 84443; 84590; 84630; 85027

== ENCOUNTER → 2023-02-19 | Outpatient (CLI) | payer MEDICAID ==
[2023-02-19 21:53] LABS: HCT 40.8 % (39.6-50.0); HGB 13.9 d/dL (13.0-17.0); MCH 30.1 pg (27.0-32.0); MCHC 34.1 d/dL (32.0-37.0); MCV 88.3 FL (80.0-97.0); Mean Platelet Volume 10.6 FL (9.5-12.2); NRBC Per 100 WBC 0 X 10*3/uL (0.00-0.01); Platelet Count 255 X 10*3/uL (140-440); RBC 4.62 X 10*6/uL (4.40-5.60); RDW 13.2 % (11.5-14.5); WBC 7.33 X 10*3/uL (4.50-10.00)
[2023-02-19 22:31] LABS: % Iron Saturation 19.26 (15.00-50.00); Iron 52 UG/DL (65-175); Magnesium 2.2 mg/dL (1.5-2.4); Total Iron Binding Capacity 270 UG/DL (228-460)
[2023-02-19 22:45] LABS: ALT 22 U/L (10-49); AST 25 U/L (14-35); Albumin 4.8 d/dL (3.8-4.9); Alkaline Phosphatase 58 U/L (41-126); BUN/Creat Ratio 23.67 Ratio (12.00-20.00); Blood Urea Nitrogen 21.3 mg/dL (9.0-27.0); Carbon Dioxide 27.2 mmol/L (21.6-31.8); Chloride 99 mmol/L (96-109); Globulin 2.4 d/dL (1.6-3.3); Glucose 88 mg/dL (70-110); Potassium 4.4 mmol/L (3.5-5.5); Sodium 140 mmol/L (135-145); Total Bilirubin 0.4 mg/dL (0.3-1.2); Total Protein 7.2 d/dL (6.2-8.2)
[2023-02-20 11:05] LABS: Zinc, Serum 66 ug/dL (60-130)
== END | disposition home or self-care (01) ==
LOC: LABWHC1 15:37
PROVIDERS: ATTEND Surgery
DX: E66.01 Morbid (severe) obesity due to excess calories (principal); D50.8 Other iron deficiency anemias; E44.0 Moderate protein-calorie malnutrition; E55.9 Vitamin D deficiency, unspecified; T56.894A Toxic effect of other metals, undetermined, initial encounter
CPT/HCPCS: 36415; 80053; 82306; 82607; 82728; 82746; 83540; 83550; 83735; 84255; 84425; 84443; 84590; 84630; 85027

== ENCOUNTER → 2023-02-25 | Outpatient (CLI) | payer MEDICAID ==
--- NOTE | 2023-02-25 15:09 | P.HPBAR ---
Bariatric H&P - History & Physicial H&P Date: 02/25/23 History & Physicial: Visit/CC: Patient initial contact: Initial weight: Initial weight in pounds: Height: 6 ft 0.5 in Initial BMI: Last weight: Current weight: 115.212 kg Current weight in pounds: Current BMI: [place] body weight (based on NIH guidelines): Excess body weight loss: The patient is a 42 year-old M who presents for Bariatric Assessment. Patient resents today for bariatric follow-up. Patient is an excellent weight loss. He's lost 25 pounds since last visit. He's had some minimal GERD. Patient's complaints of some vague numbness and tingling in his left elbow. The patient states that he's lost some muscle mass because he is not working out. Past Medical History Past Medical History: Hyperlipidemia, Hypertension, Sleep Apnea/CPAP/BIPAP Additional Past Medical History / Comment(s): CPAP use. History of Any Multi-Drug Resistant Organisms: None Reported Past Surgical History: Orthopedic Surgery Additional Past Surgical History / Comment(s): Carpal tunnel right hand, right knee surgery. Past Anesthesia/Blood Transfusion Reactions: No Reported Reaction Smoking Status: Never smoker - Past Family History Father Family Medical History: Cancer Additional Family Medical History / Comment(s): Prostate cancer. Surgical - Exam - General well developed, well nourished, no distress - Eyes PERRL - ENT normal pinna - Neck no masses - Respiratory normal expansion - Cardiovascular Rhythm: regular - Abdomen Abdomen: soft, non tender Bariatric Assessment & Plan Plan: Resolving morbid obesity. Patient BMI 34. The patient will follow-up in 4 weeks. His GERD is minimal and will be observed. Bariatric Checklist Checklist: Plan: Checklist: EGD: 1. Hiatal hernia: 2. H. Pylori: HgbA1c: Vitamin D: Smoking: Never smoker Primary care physician referral: Dr. Barrios Psychiatry clearance: Cardiology clearance: Sleep study: Diet journal: VTE risk score: VTE risk level: Rehab needs at discharge:
[2023-02-25 15:11] VITALS: BP 119/73; PULSE 59; TEMP 98.4; BMI 34.0
== END ==
LOC: BARWHC3 14:53
PROVIDERS: ATTEND Surgery
DX: E66.01 Morbid (severe) obesity due to excess calories (principal); K21.9 Gastro-esophageal reflux disease without esophagitis; E78.5 Hyperlipidemia, unspecified; I10 Essential (primary) hypertension; G47.30 Sleep apnea, unspecified; Z48.815 Encounter for surgical aftercare following surgery on the digestive system; Z99.89 Dependence on other enabling machines and devices; Z68.34 Body mass index [BMI] 34.0-34.9, adult; Z79.899 Other long term (current) drug therapy
CPT/HCPCS: 99211

== ENCOUNTER 2023-02-28 13:06 | Emergency (ER) | payer MEDICAID ==
[2023-02-28] MEDS ORDERED: PANTOPRAZOLE 40 MG/10 ML VIAL IVP STA (13:29)
--- NOTE | 2023-02-28 13:35 | ED ---
General Adult HPI - General Chief complaint: GI Bleed Stated complaint: cough Time Seen by Provider: 02/28/23 13:20 Source: patient, RN notes reviewed, old records reviewed Mode of arrival: ambulatory Limitations: no limitations - History of Present Illness Initial comments: This is a 42-year-old male who presents emergency Department with a past medical history significant for a gastric sleeve about a month ago. Patient states sometimes when he is something it makes him nauseous and he immediately vomits. Patient states that occurred today and mostly blood came up. Patient denies any pain patient denies any discomfort patient denies any chest pain difficulty breathing shortness of breath per patient denies any lightheadedness or dizziness. Patient denies any other problems - Related Data Home Medications Medication Instructions Recorded Confirmed lisinopriL [Zestril] 10 mg PO DAILY 01/12/15 02/28/23 Bariatric Multivitamin 1 tab PO DAILY 02/28/23 02/28/23 Escitalopram [Lexapro] 20 mg PO DAILY 02/28/23 02/28/23 Allergies Allergy/AdvReac Type Severity Reaction Status Date / Time No Known Allergies Allergy Verified 02/28/23 14:36 Review of Systems ROS Statement: Those systems with pertinent positive or pertinent negative responses have been documented in the HPI. ROS Other: All systems not noted in ROS Statement are negative. Past Medical History Past Medical History: Hyperlipidemia, Hypertension, Sleep Apnea/CPAP/BIPAP Additional Past Medical History / Comment(s): CPAP use. History of Any Multi-Drug Resistant Organisms: None Reported Past Surgical History: Bariatric Surgery, Orthopedic Surgery Additional Past Surgical History / Comment(s): Carpal tunnel right hand, right knee surgery. Past Anesthesia/Blood Transfusion Reactions: No Reported Reaction Past Psychological History: No Psychological Hx Reported Smoking Status: Never smoker Past Alcohol Use History: None Reported Past Drug Use History: None Reported - Past Family History Father Family Medical History: Cancer Additional Family Medical History / Comment(s): Prostate cancer. General Exam - General Exam Comments Initial Comments: GENERAL: Patient is well-developed and well-nourished. Patient is nontoxic and well- hydrated and is in no acute distress. ENT: Neck is soft and supple. No significant lymphadenopathy is noted. Oropharynx is clear. Moist mucous membranes. Neck has full range of motion without eliciting any pain. EYES: The sclera were anicteric and conjunctiva were pink and moist. Extraocular movements were intact and pupils were equal round and reactive to light. Eyelids were unremarkable. PULMONARY: Unlabored respirations. Good breath sounds bilaterally. No audible rales rhonchi or wheezing was noted. CARDIOVASCULAR: There is a regular rate and rhythm without any murmurs gallops or rubs. ABDOMEN: Soft and nontender with normal bowel sounds. SKIN: Skin is clear with no lesions or rashes and otherwise unremarkable. NEUROLOGIC: Patient is alert and oriented x3. Cranial nerves II through XII are grossly intact. Motor and sensory are also intact. Normal speech, volume and content. Symmetrical smile. MUSCULOSKELETAL: Normal extremities with adequate strength and full range of motion. LYMPHATICS: No significant lymphadenopathy is noted PSYCHIATRIC: Normal psychiatric evaluation. Limitations: no limitations Course Vital Signs 02/28/23 02/28/23 13:17 14:59 Temperature 98.6 F Pulse Rate 69 88 Respiratory 20 16 Rate Blood Pressure 118/70 117/78 O2 Sat by Pulse 99 97 Oximetry Medical Decision Making - Medical Decision Making Was pt. sent in by a medical professional or institution (, PA, CHARGE HISTOTECHNOLOGIST, urgent care, hospital, or alf...) When possible be specific @ -No Did you speak to anyone other than the patient for history (EMS, parent, family, police, friend...)? What history was obtained from this source @ -No Did you review nursing and triage notes (agree or disagree)? Why? @ -I reviewed and agree with nursing and triage notes Were old charts reviewed (outside hosp., previous admission, EMS record, old EKG, old radiological studies, urgent care reports/EKG's, alf records)? Report findings @ -I reviewed prior charts and prior to lab work on this patient Differential Diagnosis (chest pain, altered mental status, abdominal pain women, abdominal pain men, vaginal bleeding, weakness, fever, dyspnea, syncope, headache, dizziness, GI bleed, back pain, seizure, CVA, palpatations, mental health, musculoskeletal)? @ -Differential GI Bleed: Esophageal varices, aortoenteric fistula, Gladys-Ang, gastritis, peptic ulcer disease, diverticulosis, inflammatory bowel disease, hemorrhoids, fissure, colitis, malignancy, Meckels diverticulum, this is not meant to be an all-incl usive list. EKG interpreted by me (3pts min.). @ -As above X-rays interpreted by me (1pt min.). @ -Chest x-ray shows no acute abnormality CT interpreted by me (1pt min.). @ -None done U/S interpreted by me (1pt. min.). @ -None done What testing was considered but not performed or refused? (CT, X-rays, U/S, labs)? Why? @ -None What meds were considered but not given or refused? Why? @ -None Did you discuss the management of the patient with other professionals (professionals i.e. DrKaity, PA, CHARGE HISTOTECHNOLOGIST, lab, RT, psych nurse, clinical social work therapist, senior strategy manager, teacher, privacy officer, nurse case manager)? Give summary @ -I spoke with Dr. Hernandez and he did not want to admit the patient here he wanted the patient transferred to a facility that has a GI doctor. Patient's request was [facility] I spoke with the [facility] microeconomics professor and the [facility] ER doctor Dr. Thakkar in they accepted transfer Was smoking cessation discussed for >3mins.? @ -No Was critical care preformed (if so, how long)? @ -No Were there social determinants of health that impacted care today? How? (Homelessness, low income, unemployed, alcoholism, drug addiction, transportation, low edu. Level, literacy, decrease access to med. care, [facility], rehab)? @ -No Was there de-escalation of care discussed even if they declined (Discuss DNR or withdrawal of care, Hospice)? DNR status @ -No What co-morbidities impacted this encounter? (DM, HTN, Smoking, COPD, CAD, Cancer, CVA, ARF, Chemo, Hep., AIDS, mental health diagnosis, sleep apnea, morbid obesity)? @ -None Was patient admitted / discharged? Hospital course, mention meds given and route, prescriptions, significant lab abnormalities, going to OR and other pertinent info. @ -Was stable throughout his ED course his hemoglobin was 13.4. After spoke with Dr. Diehl and he requested transfer of this patient I transfer the patient a [facility] Undiagnosed new problem with uncertain prognosis? @ -No Drug Therapy requiring intensive monitoring for toxicity (Heparin, Nitro, Insulin, Cardizem)? @ -No Were any procedures done? @ -No Diagnosis/symptom? @ -Upper GI bleed Acute, or Chronic, or Acute on Chronic? @ -Acute Uncomplicated (without systemic symptoms) or Complicated (systemic symptoms)? @ -Complicated Side effects of treatment? @ -No Exacerbation, Progression, or Severe Exacerbation? @ -No Poses a threat to life or bodily function? How? (Chest pain, [place], [place], pneumonia, PE, COPD, DKA, ARF, appy, cholecystitis, CVA, Diverticulitis, Homicidal, Suicidal, threat to staff... and all critical care pts) @ -Did lead to anemia hypoxia end organ dysfunction and - Lab Data Result diagrams: 02/28/23 13:31 02/28/23 13:31 Lab Results 02/28/23 02/28/23 02/28/23 Range/Units 13:31 13:31 13:31 WBC 6.2 (3.8-10.6) k/uL RBC 4.19 L (4.30-5.90) m/uL Hgb 13.4 (13.0-17.5) gm/dL Hct 36.7 L (39.0-53.0) % MCV 87.5 (80.0-100.0) fL MCH 32.0 (25.0-35.0) pg MCHC 36.6 (31.0-37.0) g/dL RDW 13.4 (11.5-15.5) % Plt Count 197 (150-450) k/uL MPV 7.8 Neutrophils % 50 % Lymphocytes % 37 % Monocytes % 4 % Eosinophils % 5 % Basophils % 1 % Neutrophils # 3.1 (1.3-7.7) k/uL Lymphocytes # 2.3 (1.0-4.8) k/uL Monocytes # 0.2 (0-1.0) k/uL Eosinophils # 0.3 (0-0.7) k/uL Basophils # 0.0 (0-0.2) k/uL PT 10.5 (9.0-12.0) sec INR 1.0 (<1.2) APTT 24.0 (22.0-30.0) sec Sodium 138 (137-145) mmol/L Potassium 4.4 (3.5-5.1) mmol/L Chloride 102 (98-107) mmol/L Carbon Dioxide 26 (22-30) mmol/L Anion Gap 10 mmol/L BUN 27 H (9-20) mg/dL Creatinine 0.84 (0.66-1.25) mg/dL Est GFR (CKD-EPI)AfAm >90 (>60 ml/min/1.73 sqM) Est GFR (CKD-EPI)NonAf >90 (>60 ml/min/1.73 sqM) Glucose 90 (74-99) mg/dL Calcium 8.8 (8.4-10.2) mg/dL Total Bilirubin 0.5 (0.2-1.3) mg/dL AST 36 (17-59) U/L ALT 24 (4-49) U/L Alkaline Phosphatase 50 (38-126) U/L Total Protein 6.9 (6.3-8.2) g/dL Albumin 4.3 (3.5-5.0) g/dL Disposition Clinical Impression: Upper GI bleed Disposition: OTHER INSTITUTION NOT DEFINED Referrals: Jamari Barrios DO [Primary Care Provider] - 1-2 days Time of Disposition: 15:52 - Out of Hospital Transfer - Req. Specs Out of Hospital Transfer - Requested Specifics: Other Emergency Center ([facility])
[2023-02-28 13:48] LABS: Basophils % (A) 1 %; Eosinophils # (A) 0.3 k/uL (0-0.7); Eosinophils % (A) 5 %; HCT 36.7 % (39.0-53.0); HGB 13.4 gm/dL (13.0-17.5); Lymphocytes # (A) 2.3 k/uL (1.0-4.8); Lymphocytes % (A) 37 %; MCHC 36.6 g/dL (31.0-37.0); MCV 87.5 fL (80.0-100.0); Mean Platelet Volume 7.8; Monocytes # (A) 0.2 k/uL (0-1.0); Monocytes % (A) 4 %; Neutrophils # (A) 3.1 k/uL (1.3-7.7); Neutrophils % (A) 50 %; Platelet Count 197 k/uL (150-450); RBC 4.19 m/uL (4.30-5.90); RDW 13.4 % (11.5-15.5); WBC 6.2 k/uL (3.8-10.6)
[2023-02-28 13:59] LABS: ALT 24 U/L (4-49); AST 36 U/L (17-59); African American GFR (CKD) >90 (>60 ml/min/1.73 sqM); Albumin 4.3 g/dL (3.5-5.0); Alkaline Phosphatase 50 U/L (38-126); Anion Gap 10 mmol/L; Blood Urea Nitrogen 27 mg/dL (9-20); Calcium 8.8 mg/dL (8.4-10.2); Carbon Dioxide 26 mmol/L (22-30); Chloride 102 mmol/L (98-107); Glucose 90 mg/dL (74-99); Non-African American GFR(CKD) >90 (>60 ml/min/1.73 sqM); Potassium 4.4 mmol/L (3.5-5.1); Sodium 138 mmol/L (137-145); Total Bilirubin 0.5 mg/dL (0.2-1.3); Total Protein 6.9 g/dL (6.3-8.2)
--- NOTE | 2023-02-28 13:59 | XR ---
EXAMINATION TYPE: XR chest 2V DATE OF EXAM: 02/28/2023 COMPARISON: 01/19/2019 INDICATION: Difficulty breathing and hemoptysis TECHNIQUE: Frontal and lateral views of the chest are obtained. FINDINGS: The heart size is normal. The pulmonary vasculature is normal. The lungs are clear. IMPRESSION: 1. No acute pulmonary process.
[2023-02-28 14:02] LABS: Prothrombin Time 10.5 sec (9.0-12.0)
[2023-02-28 14:59] VITALS: PULSE 88
[2023-02-28 17:56] VITALS: BP 128/73; RESP 18; TEMP 98.2
== END 2023-02-28 17:30 | disposition other institution (70) ==
LOC: EC 13:06
DX: K92.2 Gastrointestinal hemorrhage, unspecified (principal); I10 Essential (primary) hypertension; Z79.899 Other long term (current) drug therapy
CPT/HCPCS: 36415; 80053; 85025; 85610; 85730; 71046; 99285; 96374; C9113